=== PATIENT | female | born 1945 | race Caucasian/White ===

== ENCOUNTER 2018-10-14 12:29 | Emergency (ER) | payer OTHER, MEDICARE ==
[2018-10-14 12:38] VITALS: BP 119/95; PULSE 97; TEMP 98.5; BMI 30.7
--- NOTE | 2018-10-14 12:52 | PDOC ---
History of Present Illness - General Chief Complaint: Allergic Reaction Stated Complaint: ALLERGIC REACTION Time Seen by Provider: 10/14/18 12:31 History Source: Patient Exam Limitations: No Limitations - History of Present Illness Initial Comments: 10/14/18 12:56 Pt is a 73yo F with PMH of MGUS, Psoriasis, HTN, HLD, PreDM presenting to ED after an allergic reaction. Pt states she was at the grocery store about an hour to 1.5 hours ago and had a potato latka. Afterward she started to feel itchy around her neck and noticed the skin was turning red. She took a Benadryl 40 minutes ago and the symptoms resolved. Her sister's PT said that pt should go to the hospital to be evaluated. Pt is denying any symptoms right now. 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 She called the store and they said that there are no mushrooms in the dish she tried. Pt states she "feels a little loopy" after taking Benadryl. She denies throat swelling, SOB, wheezing, congestion, n/v/d, abdominal pain, itchy eyes, hives, fevers, chills, weakness. PMD: Sharmin PMH: see hpi PSH: oophorectomy Meds: see med rec Allergies: nkda Past History - Past Medical History Allergies/Adverse Reactions: Allergies Allergy/AdvReac Type Severity Reaction Status Date / Time mushroom Allergy Rash Verified 10/14/18 12:30 Home Medications: Ambulatory Orders Albuterol Sulfate [Proair Hfa] 8.5 gm IH ASDIR PRN 10/14/18 Atorvastatin Ca [Lipitor] 40 mg PO HS 10/14/18 Cetirizine HCl [Zyrtec -] 10 mg PO DAILY 10/14/18 Cholecalciferol (Vitamin D3) [Vitamin D] 2,000 unit PO DAILY 10/14/18 Diphenhydramine HCl [Benadryl -] 25 mg PO ONCE 10/14/18 Fluticasone Propionate [Flovent Diskus] 50 mcg IH ASDIR PRN 10/14/18 Folic Acid 1 mg PO DAILY 10/14/18 Hydrochlorothiazide [Hctz -] 25 mg PO DAILY 10/14/18 Levothyroxine [Synthroid -] 75 mcg PO DAILY 10/14/18 Liothyronine Sodium [Cytomel -] 5 mcg PO DAILY 10/14/18 Losartan Potassium 50 mg PO DAILY 10/14/18 Metformin HCl [Glucophage] 1,000 mg PO DAILY 10/14/18 Metoprolol Succinate [Toprol Xl] 50 mg PO BID 10/14/18 Montelukast Sodium [Singulair] 10 mg PO DAILY 10/14/18 COPD: No Diabetes: Yes HTN: Yes Hypercholesterolemia: Yes Thyroid Disease: Yes - Suicide/Smoking/Psychosocial Hx Smoking History: Never smoked Have you smoked in the past 12 months: No Information on smoking cessation initiated: No Hx Alcohol Use: (wine nightly) Review of Systems - Review of Systems Constitutional: No: Chills, Diaphoresis, Fever HEENTM: No: Blurred Vision, Tearing, Nose Congestion, Throat Pain, Throat Swelling Respiratory: No: Cough, Shortness of Breath, Wheezing Cardiac (ROS): No: Chest Pain, Lightheadedness, Palpitations, Syncope ABD/GI: No: Diarrhea, Nausea, Vomiting, Abdominal cramping : No: Symptoms Reported Musculoskeletal: No: Symptoms Reported Integumentary: Yes: Erythema, Pruritus Neurological: No: Headache, Numbness, Tingling *Physical Exam - Vital Signs Last Vital Signs Temp Pulse Resp BP Pulse Ox 98.5 F 97 H 18 119/95 99 10/14/18 12:30 10/14/18 12:30 10/14/18 12:30 10/14/18 12:30 10/14/18 12:30 - Physical Exam General Appearance: Yes: Nourished, Appropriately Dressed. No: Apparent Distress HEENT: positive: EOMI, SERGIO, Normal ENT Inspection, Other (no swelling in oropharynx, normal tongue, normal mucosa). negative: Pharyngeal Erythema, Tonsillar Erythema Neck: positive: Trachea midline, Supple. negative: Stridor, Lymphadenopathy (R) , Lymphadenopathy (L) Respiratory/Chest: positive: Lungs Clear, Normal Breath Sounds. negative: Accessory Muscle Use, Rhonchi, Wheezing Cardiovascular: positive: Regular Rhythm, Regular Rate, S1, S2. negative: Edema , JVD, Murmur Vascular Pulses: Carotid (R): 2+, Carotid (L): 2+ Gastrointestinal/Abdominal: positive: Normal Bowel Sounds, Soft. negative: Tender Musculoskeletal: negative: CVA Tenderness Extremity: positive: Normal Capillary Refill. negative: Pedal Edema, Swelling Integumentary: positive: Normal Color, Dry, Warm. negative: Erythema, Hives, Rash Neurologic: positive: circuit breaker mechanic II-XII NML intact, Fully Oriented, Alert, Normal Mood/ Affect, Normal Response, Motor Strength 5/5 Medical Decision Making - Medical Decision Making 10/14/18 13:00 Pt is a 73yo F with PMH of MGUS, Psoriasis, HTN, HLD, PreDM presenting to ED after an allergic reaction. Pt states she was at the grocery store about an hour to 1.5 hours ago and had a potato latka. Afterward she started to feel itchy around her neck and noticed the skin was turning red. She took a Benadryl 40 minutes ago and the symptoms resolved. Her sister's PT said that pt should go to the hospital to be evaluated. Pt is denying any symptoms right now. 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 She called the store and they said that there are no mushrooms in the dish she tried. She denies throat swelling, SOB, wheezing, congestion, n/v/d, abdominal pain, itchy eyes, hives, fevers, chills, weakness. Vitals: wnl PE: no throat swelling, normal tongue, no stridor, lungs cta, no rashes/hives ddx includes but not limited to allergic reaction, erythroderma, electrolyte imbalance, metabolic disturbance, other autoimmune reaction Pt stable, normal vitals, lungs cta, no swelling, pt asymptomatic at this time. stable for dc home. given return precautions. pt can f/u with pmd *DC/Admit/Observation/Transfer Diagnosis at time of Disposition: Skin eruption Allergic reaction Qualifiers: Encounter type: initial encounter Qualified Code(s): T78.40XA - Allergy, unspecified, initial encounter - Discharge Dispostion Disposition: HOME Condition at time of disposition: Good - Referrals Referrals: Armando Finney [Primary Care Provider] - - Patient Instructions Printed Discharge Instructions: DI for General Allergic Reactions Additional Instructions: You were seen in the emergency room today after an allergic reaction. Everything looks good! Remember to avoid anything you are allergic to. You can take Benadryl for hives and itching. Please try to make an appointment with your doctor next week. Come back to the emergency room if you feel like your throat is closing up, your tongue starts to swell, you have difficulty breathing, you feel lightheaded or start vomiting or if any new concerning symptom develops. Thank you - Post Discharge Activity
--- NOTE | 2018-10-14 13:11 | PDOC ---
Attending Attestation - Resident Resident Name: EduardaJeri - ED Attending Attestation I have performed the following: I have examined & evaluated the patient, The case was reviewed & discussed with the resident, I agree w/resident's findings & plan, Exceptions are as noted - HPI HPI: 10/14/18 12:49 73y F hx of MGUS, psoriasis, htn, hl, predm, presents with complaint of possible allergic reaction. Pt was at the grocery store, had a potato latka and about 10 minutes afterwards starting feling itching on her neck along with redness. she took 25mg benadryl and started feeling better approx 20 min later. There was no associated sob, facia or tongue swelling voice changes, cp, abd pain, n/v, lightheadedenss. Prior history of allergy to mushrooms but nothing to the ingredients of the latke. Pt is currently asymptmoatic. denies any new purfumes, soaps, detergents or lotions Exam: General: No acute distress HENT: oropharynx patent, no edema noted, normal voice PULM: CTA b/l w/o wheezing CARD: rrr, no mrg ABD: soft nontender SKIN: no erythema, hivesor other lesions noted. no angioedema possible allergic reaction - mild as only limited/focal cutaneous symptoms resolved with benadryl will obs for 20 more min (appro x2.5 hrs after sypmtmos started, approx 1.5 hrs after she took her benadryl) if pt fine will dc home with return precautions - Physicial Exam PE: 10/20/18 00:00 see above - Medical Decision Making 10/20/18 00:00 see above
== END 2018-10-14 13:40 | disposition home or self-care (01) ==
LOC: FER 12:29
DX: R21 Rash and other nonspecific skin eruption (principal); T78.40XA Allergy, unspecified, initial encounter; I10 Essential (primary) hypertension; E78.5 Hyperlipidemia, unspecified; R73.03 Prediabetes; D47.2 Monoclonal gammopathy; E07.9 Disorder of thyroid, unspecified
CPT/HCPCS: 99283-25

== ENCOUNTER 2022-05-05 16:16 | Emergency (ER) | payer OTHER, MEDICARE ==
[2022-05-05 16:39] VITALS: BP 144/64; PULSE 83; RESP 20; TEMP 98.3; BMI 29.8
== END 2022-05-05 16:53 | disposition home or self-care (01) ==
LOC: FER 16:16
DX: S00.83XA Contusion of other part of head, initial encounter (principal); W22.8XXA Striking against or struck by other objects, initial encounter
CPT/HCPCS: 99283-25